=== PATIENT | male | born 1955 | race Caucasian/White ===

== ENCOUNTER → 2020-10-13 | Day surgery (SDC) | payer SELFPAY ==
[~2020-10-13] MED LIST: ALBUTEROL; ATOR40TA59 PO; DEXAMETHASONE SOD PHOS 4 MG/ML VIAL ONE; DOXY100C2 PO; FENO160T PO; GABA300C9 PO; GLYB5TAB3 PO; INSULIN LISPRO 100 UNIT/ML 3ML VIAL for OP,RR ONLY. SQ ONE; INSULIN LISPRO 100 UNIT/ML 3ML VIAL for OP,RR ONLY. SQ PRN; IV RINGERS,LACTATED 1000ML 1,000 ML IV SCH; LIDOCAINE 2% PF 5 ML VIAL. ONE; METF500T16 PO; METO-239 PO; NICO1PAT21 TP; OMEG1CAP27 PO; ONDANSETRON PF 4 MG/2 ML VIAL. ONE; PANT40TA6 PO; PROPOFOL 10 MG/ML (20ML) VIAL. IV ONE; SEVOFLURANE 31 TO 60 MINUTES. IH ONE; TAMS0.4C97 PO; WARF10TA40 PO; fentaNYL PF VIAL 100 MCG/2 ML VIAL ONE
--- NOTE | 2020-10-13 12:52 | HP ---
ADMIT DATE: 10/13/2020 PREOPERATIVE HISTORY AND PHYSICAL CHIEF COMPLAINT: Open incision of left transmetatarsal amputation. HISTORY OF PRESENT ILLNESS: The patient is a 64-year-old male that presented on 10/04/2020 with fever, chills, foot pain, sepsis and joint infection. He underwent a transmetatarsal amputation as a result and was sent home on some daily IV antibiotics. He indicates that he had gone to the Emergency Department yesterday for the scheduled daily IV antibiotics and noted when he got home and did dressing changes, the incision area had opened up significantly more and some of the stitches had pulled. He was weightbearing as tolerated as directed on his left heel. PAST MEDICAL HISTORY: Chronic recurrent DVT. PAST SURGICAL HISTORY: Lung cancer, status post resection and transmetatarsal amputation, left foot. SOCIAL HISTORY: He works as a trucking manager, is , relatively sedentary lifestyle prior to his last admission, was smoking. Denies alcohol or drug use. FAMILY HISTORY: Noncontributory. REVIEW OF SYSTEMS: No complaints recently with any chest pain, shortness of breath, fever or chills, but has had increased drainage due to the opening of the transmetatarsal amputation incision area. PHYSICAL EXAMINATION: VITAL SIGNS: Per admission sheet. HEENT: Atraumatic, normocephalic. HEART: Regular rate and rhythm. LUNGS: Clear to auscultation. ABDOMEN: Benign. EXTREMITIES: He has an open incision distally from closure of a transmetatarsal amputation on the left foot. No surrounding redness or erythema is present. He has significant serosanguineous drainage as a result. IMPRESSION: Incision opening from transmetatarsal amputation. TREATMENT PLAN: I had gone over with him the necessity of exploring this and dealing with that in the operating room. We may have to restrict his activity even more. He is in today for his daily IV antibiotic infusion, which would be adequate for preoperative dose of antibiotics and we talked through again activity restrictions for the anticipated longer than noted healing time and I emphasized smoking certainly is a healing risk as well. He is aware of the possible risk of additional tissue necrosis and infection. Additional procedures if he does not achieve adequate coverage or healing of this area. JOSÉ MIGUEL SHEPHERD MD DR: CHE/marques JOB#: [id number] / [id number]
--- NOTE | 2020-10-13 13:21 | DISCH ---
DISCHARGE INSTRUCTIONS Condition on Discharge Condition on Discharge: Stable Activity After Discharge Activity Instructions for Disc: Other, see below (Ambulate as needed, when not up and around elevate foot above heart level to minimize swelling) Weight Bearing Status after Di: Other, see below (Weightbearing on heel of left foot as necessary for stability, minimize pressure on the foot as possible) Diet after Discharge Diet after Discharge: Diabetic No Calorie Level Wound Incision Care Wound/Incision Care: Change dressing (Daily dressing changes with Xeroform gauze and sterile dressing call if increased redness drainage or other problems) Community/Resources/Services Services at Discharge: Infusion Therapy (Ongoing IV antibiotics as directed) Contacting the after DC Call your doctor for: Concerns you may have Follow-Up Follow up with: Dr. Elias 2 weeks JOSÉ MIGUEL ELIAS MD Oct 13, 2020 13:21
--- NOTE | 2020-10-13 13:30 | PDOC4 ---
Operative Note Operative Note Date of surgery: 10/13/2020 Preoperative diagnosis: Incision dehiscence status post left transmetatarsal amputation Postoperative diagnosis: Same with significant tissue edema Operative procedure: Irrigation and debridement of left transmetatarsal amputation with closure Surgeon: Curt Building Maintenance Engineer: Nick lino Anesthesia: General Estimated blood loss: 20 cc Complications: None Operative indications: Patient had recently undergone left transmetatarsal amputation for infection of his foot and has been undergoing daily IV antibiotics and noted that his incision was opening more on his dressing change yesterday. I had gone over with he and his the fact that we could not simp ly sutures this up in the office or otherwise and it would need intention in the operating room to debride and irrigate the area to avoid potentially trapping any infection. He is still at risk for difficulties healing due to his neuropathy and other medical conditions including the tissue damage with presence of the infection we talked about slow healing possibility of additional procedures if he does not get adequate tissue coverage and healing among others he agrees to proceed with surgical evaluation and treatment. Operative text: Patient was identified procedure verified patient placed in the supine position on the operating table. After adequate amounts of general anesthesia were administered the left lower extremity was prepped and draped in the standard sterile fashion. After timeout was performed patient procedure identified and verified sutures that had pulled out of the tissue were removed primarily along the distal lateral incision site. Debridement was carried out down to the fascial layer and any hematoma evacuated. There irrigation carried out normal saline solution and pulse lavage remaining tissue was noted to be viable after debridement of skin subcutaneous tissue and fascia. Closure was accomplished with a tension relieving #2 nylon near far far near suture particularly at the distal lateral aspect of the incision and the remainder of the incision well opposed by 3-0 nylon suture. Sterile dressings were then applied patient was returned to recovery room in stable condition having tole rated procedure well. Nick lino was present for the procedure assisted in patient positioning prepping draping and dressings JOSÉ MIGUEL SHEPHERD MD Oct 13, 2020 13:30
[2020-10-13 13:47] VITALS: BP 111/72
== END | disposition home or self-care (01) ==
LOC: SURG 10:30
PROVIDERS: ATTEND Orthopaedic Surgery
DX: R60.1 Generalized edema (principal); E78.00 Pure hypercholesterolemia, unspecified; J44.9 Chronic obstructive pulmonary disease, unspecified; E11.42 Type 2 diabetes mellitus with diabetic polyneuropathy; I10 Essential (primary) hypertension; K21.9 Gastro-esophageal reflux disease without esophagitis; Z87.891 Personal history of nicotine dependence; Z79.899 Other long term (current) drug therapy; Z79.84 Long term (current) use of oral hypoglycemic drugs; Z98.890 Other specified postprocedural states; Z88.1 Allergy status to other antibiotic agents; Z88.8 Allergy status to other drugs, medicaments and biological substances
CPT/HCPCS: 11043; 82962; A4461; J1100; J1815; J2405; J2704; J3010